=== PATIENT | female | born 1955 | race Caucasian/White ===

== ENCOUNTER 2022-01-27 08:00 | Outpatient (CLI) | payer MEDICARE | END 2022-01-27 23:59 | disposition home or self-care (01) | LOC: LAB.R 08:00 | PROVIDERS: ATTEND Nurse Practitioner Family | DX: U07.1 COVID-19 (principal) ==

== ENCOUNTER 2022-04-07 15:25 | Outpatient (CLI) | payer MEDICARE ==
--- NOTE | 2022-04-14 10:15 | Mammography Report ---
BILATERAL DIGITAL SCREENING MAMMOGRAM 3D/2D: 04/07/2022 CLINICAL: Routine screening. Comparison is made to exams dated: 07/21/2021 mammogram, 07/10/2020 mammogram, and 05/27/2019 mammogr - [facility], 1928–1983. There are scattered areas of fibroglandular density in both breasts (category b / 25%-50% glandular t issue). No significant masses, calcifications, or other findings are seen in either breast. There has been no significant interval change. IMPRESSION: NEGATIVE There is no mammographic evidence of malignancy. A 1 year screening mammogram is recommended. Based on the Tyrer Cuzick model (a risk assessment model) the patients lifetime risk is 4.7% and her 10 year risk is 2.6%. According to the ACR, ACS, and NCCN guidelines, an annual breast MRI exam timothy g with mammogram is recommended if the patients lifetime risk is 20% or greater. This exam was interpreted at Station ID: [id number]. NOTE: For mammograms, a report in lay terms will be sent to the patient. Approximately 15% of breast malignancies will not be visualized mammographically. In the management of a palpable breast mass, a negative mammogram must not discourage biopsy of a clinically suspicious lesion. Electronically Signed By: Jin [email or web address]/[email or web address]:04/13/2022 17:17:34 ACR BI-RADS Category 1: Negative 3341F PARENCHYMAL PATTERN: (A) - The breast(s) demonstrate(s) scattered fibroglandular densities. BI-RADS CATEGORY: (1) - 1 RECOMMENDATION: (ANNUAL) - Recommend routine annual screening mammography. [id number] 1 year screening LATERALITY: (B)
== END 2022-04-07 15:26 | disposition home or self-care (01) ==
LOC: DI 15:25
DX: Z12.31 Encounter for screening mammogram for malignant neoplasm of breast (principal)

== ENCOUNTER 2022-06-07 11:04 | Outpatient (CLI) | payer OTHER ==
--- NOTE | 2022-06-08 11:55 | Mammography Report ---
UNILATERAL LEFT DIGITAL DIAGNOSTIC MAMMOGRAM 3D/2D WITH SPOT COMPRESSION: 06/07/2022 CLINICAL: Palpable left breast lump. Comparison is made to exams dated: 04/07/2022 mammogram - [facility], 07/21/2021 [facility] mogram, 07/10/2020 mammogram, 05/27/2019 mammogram, 02/27/2018 mammogram, and 03/25/2016 mammogram - [facility]. There are scattered areas of fibroglandular density in the left breast (category b / 25%-50% glandula r tissue). There is an oil cyst in the left breast at 9 o'clock middle depth. This is seen in additional views. This may correlate as palpated. No other significant masses or calcifications are seen in the breast. IMPRESSION: INCOMPLETE: NEEDS ADDITIONAL IMAGING EVALUATION The oil cyst in the left breast is indeterminate. A targeted ultrasound of the left breast is recomme nded and will be performed immediately following this exam. Based on the Tyrer Cuzick model (a risk assessment model) the patients lifetime risk is 4.7% and her 10 year risk is 2.6%. According to the ACR, ACS, and NCCN guidelines, an annual breast MRI exam timothy g with mammogram is recommended if the patients lifetime risk is 20% or greater. This exam was interpreted at Station ID: [id number]. NOTE: For mammograms, a report in lay terms will be sent to the patient. Approximately 15% of breast malignancies will not be visualized mammographically. In the management of a palpable breast mass, a negative mammogram must not discourage biopsy of a clinically suspicious lesion. Electronically Signed By: Priscilla Tamayo M.D. lk/:06/07/2022 11:52:25 ACR BI-RADS Category 0: Incomplete 3340F PARENCHYMAL PATTERN: (A) - The breast(s) demonstrate(s) scattered fibroglandular densities. BI-RADS CATEGORY: (0) - 0 Ultrasound [id number] Immediate follow-up LATERALITY: (B)
--- NOTE | 2022-06-08 11:55 | Ultrasound Report ---
LIMITED ULTRASOUND OF LEFT BREAST: 06/07/2022 CLINICAL: Palpable left breast lump. Comparison is made to exams dated: 06/07/2022 mammogram, 04/07/2022 mammogram - [facility], 07/21/2021 mammogram, 07/10/2020 mammogram, 05/27/2019 mammogram, and 02/27/2018 mammogram - [facility]. Color flow ultrasound of the left breast 9 o'clock region was performed on the areas of interest. G ray scale images of the real-time examination were reviewed. There is a 0.3 cm oil cyst in the left breast at 9 o'clock middle depth. This correlates as palpated and with mammography findings. IMPRESSION: BENIGN There is no sonographic evidence of malignancy. The 0.3 cm oil cyst in the left breast is benign. Return to annual mammogram screening schedule is recommended. This exam was interpreted at Station ID: [id number]. Electronically Signed By: Priscilla Tamayo M.D. lk/:06/07/2022 11:53:24 Ultrasound BI-RADS: 2 Benign BI-RADS CATEGORY: (2) - 2 Mammogram [id number] return to screening LATERALITY: (B)
== END 2022-06-07 11:05 | disposition home or self-care (01) ==
LOC: DI 11:04
PROVIDERS: ATTEND Internal Medicine
DX: N60.02 Solitary cyst of left breast (principal)

== ENCOUNTER 2022-06-10 10:27 | Day surgery (SDC) | payer MEDICARE ==
[~2022-06-10 10:27] MED LIST: CEFAZOLIN 2G/50ML 0.9% NS 2 GM/50 ML BAG IV ONE
[2022-06-10] MEDS ORDERED: LACTATED RINGERS 1,000 ML IV ONE (11:08)
--- NOTE | 2022-06-10 11:46 | ANESTHESIA ---
Pre-Anesthesia VS, & Labs - Diagnosis L breast mass - Procedure L breast biopsy Vital Signs: Temp Pulse Resp BP Pulse Ox O2 Flow Rate 36.6 C 64 18 137/76 H 98 06/10/22 10:44 06/10/22 10:44 06/10/22 10:44 06/10/22 10:44 06/10/22 10:44 Height: 5 ft 6 in Weight (kg): 79.8 kg Body Mass Index: 28.3 BMI Classification: Overweight - NPO >8 hours - Is Patient ?: No Home Medications and Allergies Home Medications: Ambulatory Orders Eszopiclone [Lunesta] 3 mg PO QPM 05/25/22 Levothyroxine [Synthroid] 125 mcg PO QDAC 05/25/22 Meloxicam [Mobic] 15 mg PO PRN PRN 05/25/22 Tocilizumab [Actemra] 162 mg SQ ONCE 05/25/22 Eszopiclone [Lunesta] 3 mg PO QPM 05/25/22 Levothyroxine [Synthroid] 125 mcg PO QDAC 05/25/22 Meloxicam [Mobic] 15 mg PO PRN PRN 05/25/22 Tocilizumab [Actemra] 162 mg SQ ONCE 05/25/22 Allergies/Adverse Reactions: Allergies Allergy/AdvReac Type Severity Reaction Status Date / Time No Known Drug Allergies Allergy Verified 05/25/22 14:33 Anes History & Medical History - Anesthetic History Anesthesia Complications: reports: No previous complications Family history of Anesthesia Complications: Denies Family history of Malignant Hyperthermia: Denies - Medical History Cardiovascular: reports: Murmur Pulmonary: reports: CPAP use, Other Gastrointestinal: reports: None Urinary: reports: None Musculoskeletal: reports: Osteoarthritis, Rheumatoid arthritis Endocrine/Autoimmune: reports: HyPOthyroidism Skin: reports: Rosacea - Surgical History Gynecologic: reports: section, Hysterectomy, Other Orthopedic: reports: Rotator cuff repair, Spine surgery, Other Exam General: Alert, Oriented x3, Cooperative Dental: WNL Mouth Openin Fingerbreadth Neck Mobility: Normal Mallampati classification: II Thyromental Distance: 4-6 cm Respiratory: Lungs clear Cardiovascular: Regular rate Plan Anesthesia Type: General, Total IV (TIVA with LMA backup) Consent for Procedure(s) Verified and Reviewed: Yes Code Status: Attempt Resuscitation ASA classification: 2-Mild systemic disease Is this case an emergency?: No
[2022-06-10] MEDS ORDERED: fentaNYL 100 MCG/2 ML VIAL ONE (12:35)
[2022-06-10] MEDS ORDERED: MIDAZOLAM 2 MG/2 ML VIAL ONE (12:35)
[2022-06-10] MEDS ORDERED: PROPOFOL 200 MG/20 ML VIAL IVP ONE (12:36)
[2022-06-10] MEDS ORDERED: LIDOCAINE-PF 2% 10 ML AMP SUBQ ONE (12:36)
[2022-06-10] MEDS ORDERED: BUPIVACAINE 0.5% PF 30 ML VIAL ONE (12:38)
[2022-06-10] MEDS ORDERED: DEXAMETHASONE 4 MG/ML VIAL ONE (13:13)
[2022-06-10] MEDS ORDERED: BUPIVACAINE 0.5% PF 30 ML VIAL SUBQ ONE ×2 (13:16)
[2022-06-10] MEDS ORDERED: ePHEDrine 50 MG/ML VIAL IVP ONE (13:17)
[2022-06-10] MEDS ORDERED: HYDROmorphone 0.5 MG/0.5 ML SYRINGE IVP PRN (13:29)
[2022-06-10] MEDS ORDERED: ONDANSETRON 4 MG/2 ML VIAL IVP PRN (13:29)
[2022-06-10] MEDS ORDERED: ATROPINE ABBOJECT 1 MG/10 ML SYRINGE IVP PRN (13:29)
[2022-06-10] MEDS ORDERED: NALOXONE 0.4 MG/ML VIAL IVP PRN (13:29)
[2022-06-10] MEDS ORDERED: fentaNYL 100 MCG/2 ML VIAL IVP PRN (13:29)
[2022-06-10] MEDS ORDERED: MORPHINE 2 MG/ML CARPUJECT IVP PRN (13:29)
[2022-06-10] MEDS ORDERED: ePHEDrine 50 MG/ML VIAL IVP PRN (13:29)
[2022-06-10] MEDS ORDERED: METOCLOPRAMIDE 10 MG/2 ML VIAL IVP PRN (13:29)
[2022-06-10] MEDS ORDERED: LACTATED RINGERS 500 ML IV ONE (13:57)
[2022-06-10] MEDS ORDERED: LACTATED RINGERS 1,000 ML IV SCH (14:00)
--- NOTE | 2022-06-10 14:02 | OPERATIVE REPORT ---
Operative Report - General Procedure Date: 06/10/22 Planned Procedure: Left excisional breast biopsy Pre-Op Diagnosis: Left breast mass Procedure Performed: Left excisional breast biopsy marked with a short stitch superiorly long stitch laterally and double stitch deep Post Op Diagnosis: Same - Procedure Note Primary Surgeon: Asaf Tomas MD Anesthesia Provider: Daniel Lara CRNA Anesthesia Technique: General ET tube, Local (30 mL of half percent Marcaine) IV Fluids (mL): 500 Estimated Blood Loss (mL): 10 Drain/Tube Type: Other (None.) Indications: As above. Complications: None. - Other Other Information/Narrative: After verbal and written informed consent was obtained detailing the operation, the alternatives the operation including no operation, risks of infection, bleeding requiring transfusion with its risks, nerve injury, and and after I met with the patient confirming the surgery and the site of surgery, the patient was brought to the operative suite and placed supine on the operating table. Great care was taken to avoid pressure points to prevent pressure necrosis or nerve injury. Monitoring devices were applied along with TEDs and pneumatic compression stockings (to prevent DVT). The patient received preoperative antibiotics for surgical prophylaxis. Daniel Lara CRNA sedated and anesthetized the patient for the entire procedure. The patient was prepped and draped in the usual sterile manner. With the patient draped my initials were clearly visible. A "time in" then confirmed that the patient was identified with 3 identifiers (name, date, and medical record number), the history and physical was updated and in the chart, the signed consent confirming the procedure was in the chart, the patient was in the correct position, the aforementioned prophylactic measures were in place or given, we had the correct personnel and equipment to complete the procedure and that anesthesia and the surgical team were given an opportunity to express any concerns. With the agreement of everyone in the room we proceeded with the operation. A transverse incision was made overlying the mass and dissection was carried out down to the mass using a combination of sharp dissection with Metzenbaum scissors and Bovie electrocautery. Meticulous hemostasis was achieved using Bovie electrocautery. Great care was taken to ensure that a 1 cm margin was obtained around the entire lesion. Once the dissection proceeded to its deepest point the mass was excised using application of Bill scissors. At this point a small feeding blood vessel was encountered and hemostasis was obtained using Bovie electrocautery but not before some small amount of blood loss occurred. The mass was then marked with a short silk stitch superiorly, a long silk stitch laterally, and a double stitch deep. The specimen was sent off the operative field and permission was given to send it to pathology. The cavity was examined and meticulous hemostasis was again noted. The subcutaneous tissues were approximated using simple 3-0 Vicryl suture. The skin incision was approximated with 4-0 Monocryl in a subcuticular fashion. The cavity and overlying skin was then injected using all of the half percent Marcaine. The skin was cleaned of its prep and Dermabond was applied. At this point a timeout was performed that confirmed that all counts were correct x2, the procedure that was performed, the blood loss, the IV fluids administered, the patient's condition, and any concerns of the operating team had. Having tolerated the procedure well, the patient was taken recovery room in good and stable condition. The plan is for outpatient discharge when the patient is adequately recovered. CPT 07253 This document was created in part using voice recognition technology. Because of the inherent limitations of the system, occasional same sounding word substitutions and grammatical errors do occur and persist despite proofreading. Please read this document for content.
[2022-06-10 14:30] VITALS: BP 132/72
--- NOTE | 2022-06-10 16:31 | ANESTHESIA POST OP EVALUATION ---
Anesthesia Post Eval - Post Anesthesia Eval Vitals: Last Vital Signs Temp 36.7 C 06/10/22 14:29 Pulse 64 06/10/22 14:29 Resp 14 06/10/22 14:29 BP 132/72 H 06/10/22 14:29 Pulse Ox 97 06/10/22 14:29 O2 Flow Rate CV Function Including HR & BP: Stable Pain Control: Satisfactory Nausea & Vomiting: Negative Mental Status: Baseline Respiratory Status: Airway Patent Hydration Status: Satisfactory Anesthesia Complications: None
== END 2022-06-10 10:28 | disposition home or self-care (01) ==
LOC: SDS 10:27
PROVIDERS: ATTEND Surgery
PROC: 0HBU0ZX Excision of Left Breast, Open Approach, Diagnostic (ICD-10-PCS; principal; 2022-06-10 11:30)
DX: N60.12 Diffuse cystic mastopathy of left breast (principal); E03.9 Hypothyroidism, unspecified
CPT/HCPCS: 19120; J0690; J7120

== ENCOUNTER 2022-08-09 10:36 | Outpatient (CLI) | payer OTHER ==
[2022-08-09 10:48] LABS: BASOPHILS # (AUTO) 0.1 10^3/uL (0.0-0.1); EOSINOPHILS # (AUTO) 0.1 10^3/uL (0.0-0.7); EOSINOPHILS % (AUTO) 1.5 %; HCT - HEMATOCRIT 45.4 % (37.0-47.0); HGB - HEMOGLOBIN 14.6 g/dL (12.0-16.0); LYMPHOCYTES # (AUTO) 1.8 10^3/uL (1.5-3.5); LYMPHOCYTES % (AUTO) 39.5 %; MEAN CORPUSCULAR HEMOGLOBIN 29.4 pg (27.0-31.0); MEAN CORPUSCULAR HGB CONC 32.2 g/dL (32.0-36.0); MEAN CORPUSCULAR VOLUME 91.3 fL (81.0-99.0); MEAN PLATELET VOLUME 10.2 fL (7.9-10.8); MONOCYTES # (AUTO) 0.5 10^3/uL (0.0-1.0); NEUTROPHILS # (AUTO) 2.2 10^3/uL (1.5-6.6); NEUTROPHILS % (AUTO) 46.8 %; PLT - PLATELET COUNT 204 10^3/uL (130-450); RED BLOOD COUNT 4.97 10^6/uL (4.20-5.40); RED CELL DISTRIBUTION WIDTH 14.1 % (12.0-15.0); WHITE BLOOD COUNT 4.6 x10^3/uL (4.8-10.8)
[2022-08-09 11:07] LABS: ALBUMIN 4.3 g/dL (3.2-5.5); ALKALINE PHOSPHATASE 81 IU/L (42-121); ALT ALANINE AMINOTRANSFERASE 77 IU/L (10-60); AST ASPARTATE AMINOTRANSFERASE 45 IU/L (10-42); BILIRUBIN,DIRECT 0.1 mg/dL (0.1-0.5); BILIRUBIN,TOTAL 0.9 mg/dL (0.2-1.0); TOTAL PROTEIN 7.4 g/dL (6.7-8.2)
[2022-08-09 11:31] LABS: CRP - C-REACTIVE PROTEIN < 1.0 mg/dL (0-1.0)
== END 2022-08-09 10:37 | disposition home or self-care (01) ==
LOC: LAB 10:36
PROVIDERS: ATTEND Internal Medicine Rheumatology
DX: M05.9 Rheumatoid arthritis with rheumatoid factor, unspecified (principal); D84.9 Immunodeficiency, unspecified; M17.12 Unilateral primary osteoarthritis, left knee; M19.111 Post-traumatic osteoarthritis, right shoulder; M19.112 Post-traumatic osteoarthritis, left shoulder
CPT/HCPCS: 36415; 80076; 82378; 85025; 85651; 86140

== ENCOUNTER 2022-08-19 16:41 | Outpatient (CLI) | payer OTHER ==
[2022-08-19 17:41] LABS: CREATININE 0.7 mg/dL (0.4-1.0)
== END 2022-08-19 16:42 | disposition home or self-care (01) ==
LOC: LAB 16:41
PROVIDERS: ATTEND Internal Medicine Rheumatology
DX: M05.9 Rheumatoid arthritis with rheumatoid factor, unspecified (principal); D84.9 Immunodeficiency, unspecified; M17.12 Unilateral primary osteoarthritis, left knee; M19.111 Post-traumatic osteoarthritis, right shoulder; M19.112 Post-traumatic osteoarthritis, left shoulder
CPT/HCPCS: 36415; 82565

== ENCOUNTER 2023-01-20 13:00 | Outpatient (CLI) | payer OTHER, MEDICARE ==
[2023-01-20 20:06] LABS: BACTERIAL VAGINOSIS DNA POSITIVE (NEGATIVE); CANDIDA GLABRATA DNA NEGATIVE (NEGATIVE); CANDIDA GROUP DNA NEGATIVE (NEGATIVE); CANDIDA KRUSEI DNA NEGATIVE (NEGATIVE); TRICHOMONAS VAGINALIS DNA NEGATIVE (NEGATIVE)
[2023-01-20 21:40] LABS: CHLAMYDIA TRACHOMATIS DNA NEGATIVE (NEGATIVE); NEISSERIA GONORRHOEAE DNA NEGATIVE (NEGATIVE)
== END 2023-01-20 13:15 | disposition home or self-care (01) ==
LOC: LAB.N 13:00
PROVIDERS: ATTEND Nurse Practitioner
DX: R30.0 Dysuria (principal); L29.8 Other pruritus
CPT/HCPCS: 81514; 87086; 87491; 87591; 87661

== ENCOUNTER 2023-02-14 13:09 | Outpatient (CLI) | payer OTHER | END 2023-02-14 13:10 | disposition home or self-care (01) | LOC: CAM 13:09 | PROVIDERS: ATTEND Nurse Practitioner Family | DX: M25.562 Pain in left knee (principal); Z96.652 Presence of left artificial knee joint | CPT/HCPCS: 97810; 97811 ==

== ENCOUNTER 2023-02-28 13:15 | Outpatient (CLI) | payer OTHER | END 2023-02-28 13:16 | disposition home or self-care (01) | LOC: CAM 13:15 | PROVIDERS: ATTEND Nurse Practitioner Family | DX: M25.552 Pain in left hip (principal); Z96.652 Presence of left artificial knee joint | CPT/HCPCS: 97810; 97811 ==

== ENCOUNTER 2023-04-11 13:14 | Outpatient (CLI) | payer OTHER | END 2023-04-11 13:15 | disposition home or self-care (01) | LOC: CAM 13:14 | PROVIDERS: ATTEND Nurse Practitioner Family | DX: M25.562 Pain in left knee (principal); Z96.659 Presence of unspecified artificial knee joint | CPT/HCPCS: 97810; 97811 ==

== ENCOUNTER 2023-05-02 13:16 | Outpatient (CLI) | payer OTHER | END 2023-05-02 13:17 | disposition home or self-care (01) | LOC: CAM 13:16 | PROVIDERS: ATTEND Nurse Practitioner Family | DX: M25.569 Pain in unspecified knee (principal); Z96.659 Presence of unspecified artificial knee joint | CPT/HCPCS: 97810; 97811 ==

== ENCOUNTER 2023-06-20 13:10 | Outpatient (CLI) | payer OTHER | END 2023-06-20 13:11 | disposition home or self-care (01) | LOC: CAM 13:10 | PROVIDERS: ATTEND Nurse Practitioner Family | DX: M25.569 Pain in unspecified knee (principal); Z96.659 Presence of unspecified artificial knee joint | CPT/HCPCS: 97810; 97811 ==

== ENCOUNTER 2023-06-27 13:15 | Outpatient (CLI) | payer OTHER | END 2023-06-27 13:16 | disposition home or self-care (01) | LOC: CAM 13:15 | PROVIDERS: ATTEND Nurse Practitioner Family | DX: M25.569 Pain in unspecified knee (principal); Z96.659 Presence of unspecified artificial knee joint | CPT/HCPCS: 97813; 97814 ==

== ENCOUNTER 2023-07-18 15:39 | Outpatient (CLI) | payer OTHER | END 2023-07-18 15:40 | disposition home or self-care (01) | LOC: CAM 15:39 | PROVIDERS: ATTEND Nurse Practitioner Family | DX: M25.569 Pain in unspecified knee (principal); Z96.659 Presence of unspecified artificial knee joint | CPT/HCPCS: 97810; 97811 ==

== ENCOUNTER 2023-07-25 15:39 | Outpatient (CLI) | payer OTHER | END 2023-07-25 15:40 | disposition home or self-care (01) | LOC: CAM 15:39 | PROVIDERS: ATTEND Nurse Practitioner Family | DX: M25.569 Pain in unspecified knee (principal); Z96.659 Presence of unspecified artificial knee joint | CPT/HCPCS: 97810; 97811 ==

== ENCOUNTER 2023-11-07 15:43 | Outpatient (CLI) | payer OTHER | END 2023-11-07 15:44 | disposition home or self-care (01) | LOC: CAM 15:43 | PROVIDERS: ATTEND Internal Medicine | DX: G89.29 Other chronic pain (principal) | CPT/HCPCS: 97810; 97811 ==

== ENCOUNTER 2023-11-14 15:48 | Outpatient (CLI) | payer OTHER | END 2023-11-14 15:49 | disposition home or self-care (01) | LOC: CAM 15:48 | PROVIDERS: ATTEND Internal Medicine | DX: G89.29 Other chronic pain (principal) | CPT/HCPCS: 97810; 97811 ==

== ENCOUNTER 2023-12-15 14:26 | Outpatient (CLI) | payer OTHER | END 2023-12-15 14:27 | disposition home or self-care (01) | LOC: CAM 14:26 | PROVIDERS: ATTEND Internal Medicine | DX: G89.29 Other chronic pain (principal) | CPT/HCPCS: 97810; 97811 ==

== ENCOUNTER 2023-12-19 13:13 | Outpatient (CLI) | payer OTHER | END 2023-12-19 13:14 | disposition home or self-care (01) | LOC: CAM 13:13 | PROVIDERS: ATTEND Internal Medicine | DX: G89.29 Other chronic pain (principal) | CPT/HCPCS: 97810; 97811 ==

== ENCOUNTER 2023-12-29 11:01 | Outpatient (CLI) | payer OTHER | END 2023-12-29 11:02 | disposition home or self-care (01) | LOC: CAM 11:01 | PROVIDERS: ATTEND Internal Medicine | DX: G89.29 Other chronic pain (principal) | CPT/HCPCS: 97810; 97811 ==

== ENCOUNTER 2024-01-05 11:08 | Outpatient (CLI) | payer OTHER | END 2024-01-05 11:09 | disposition home or self-care (01) | LOC: CAM 11:08 | PROVIDERS: ATTEND Internal Medicine | DX: G89.29 Other chronic pain (principal) | CPT/HCPCS: 97810; 97811 ==

== ENCOUNTER 2024-01-09 14:27 | Outpatient (CLI) | payer OTHER | END 2024-01-09 14:28 | disposition home or self-care (01) | LOC: CAM 14:27 | PROVIDERS: ATTEND Internal Medicine | DX: G89.29 Other chronic pain (principal) | CPT/HCPCS: 97810; 97811 ==

== ENCOUNTER 2024-04-05 10:58 | Outpatient (CLI) | payer OTHER | END 2024-04-05 10:59 | disposition home or self-care (01) | LOC: RT 10:58 | PROVIDERS: ATTEND Internal Medicine | DX: R05.2 Subacute cough (principal) | CPT/HCPCS: 94010; 94729 ==